=== PATIENT | male | born 1965 | race Caucasian/White ===

== ENCOUNTER 2016-02-29 08:22 | Day surgery (SDC) | payer BC ==
[~2016-02-29] VITALS: Ht 185.4 cm; Wt 79.4 kg
[~2016-02-29 08:22] MED LIST: OMEPRAZOLE20 M1 PO; PSEUDOEPHEDRINE30 MG PO
[2016-02-29 09:16] VITALS: BP 91/48; Ht 185.4 cm; Wt 79.4 kg
[2016-02-29 09:38] LABS: BASOPHILS 0.9 % (0.0-2.0); EOSINOPHILS 2.7 % (0-7); HEMATOCRIT 41.2 % (42.0-54.0); HEMOGLOBIN 13.5 g/dL (13.5-17.5); IMMATURE GRANULOCYTES 0.4 % (0-5); LYMPHOCYTES 36.9 % (15-50); MCH 30.5 pg (26.0-34.0); MCHC 32.8 g/dL (31.0-37.0); MCV 93.2 fL (80.0-100.0); MEAN PLATELET VOLUME 9.5 fL (7.4-10.4); MONOCYTES 13.3 % (2-11); NEUTROPHILS 45.8 % (40-80); PLATELET COUNT 345 10x3/uL (130-400); RBC 4.42 10x6/uL (4.20-6.10); RDW 13.4 % (11.5-14.5); WBC 5.6 10x3/uL (4.8-10.8)
[2016-02-29 09:47] LABS: CALC OSMOLALITY 272 mosm/kg (275-300); CALCIUM 9.1 mg/dL (8.5-10.1); CARBON DIOXIDE 26.2 mmol/L (21.0-32.0); CHLORIDE - SERUM 106 mmol/L (98-107); CREATININE - SERUM 0.9 mg/dL (0.6-1.3); GLUCOSE 96 mg/dL (74-106); SODIUM 137 mmol/L (136-145); UREA NITROGEN 9 mg/dL (7-18); eGFR NON AFRICAN AMERICAN > 90 mL/min (90-120)
[2016-02-29 09:49] LABS: POTASSIUM - SERUM 4.9 mmol/L (3.5-5.1)
[2016-02-29] MEDS ORDERED: PERCOCET 10/3251 TA1 PO (12:04)
--- NOTE | 2016-02-29 16:10 | NUR ---
VOIDED WITHOUT DIFFICULTY. IV REMOVED WITH TIP INTACT. DISCHARGE INSTRUCTIONS AND RX FOR PERCOCET GIVEN, VOICED UNDERSTANDING. DISCHARGED HOME VIA WC.
--- NOTE | 2016-03-05 10:09 | OP ---
PATIENT NAME: ADRIENNE HILARIO MEDICAL RECORD: [id number] :67 LOCATION:[facility] ADMISSION DATE: SURGEON: DYLON PEREZ MD DATE OF OPERATION: 02/29/2016 PREOPERATIVE DIAGNOSES: 1. Bilateral inguinal hernias. 2. Umbilical hernia. 3. Tobacco dependent syndrome. 4. Gastroesophageal reflux disease. POSTOPERATIVE DIAGNOSES: 1. Bilateral inguinal hernias. 2. Umbilical hernia. 3. Tobacco dependent syndrome. 4. Gastroesophageal reflux disease. PROCEDURES: 1. Bilateral inguinal hernia repairs with medium PHS mesh. 2. Umbilical hernia repair without mesh. SURGEON: Dylon Perez MD REPORT OF PROCEDURE: The patient's abdomen and groins were prepped and draped in sterile fashion. A semicircular incision was made on the inferior aspect of the umbilicus. Electrocautery was used to dissect through the subcutaneous tissues and we bluntly came around the umbilical stalk. The stalk was transected using electrocautery and the hernia sac was removed down to the fascial edges. The hernia defect was less than a centimeter in diameter. We cleared up the fascial edges and reapproximated the fascia transversely with interrupted 0 Prolenes times 3. We then irrigated out the wound. The umbilicus was tacked down to the fascia using interrupted 3-0 Vicryl and the subcutaneous tissues were reapproximated with interrupted 3-0 Vicryls. The skin was closed with running subcutaneous 5-0 Monocryl. We then addressed the patient's right inguinal hernia. An oblique incision was made above the inguinal ligament in the right groin. Electrocautery was used to dissect through the subcutaneous tissues to the external oblique fascia. This fascia was incised with a 15 blade and then opened up to the external ring using electrocautery. The ilioinguinal nerve was found and high ligated. The patient had a direct inguinal hernia. The spermatic cord was inspected and there was no sign of an indirect hernia defect. An opening was made in the floor of the inguinal canal and the preperitoneal space of Retzius was opened up. A medium PHS mesh was inserted and sutured down on all 4 sides with interrupted 0 Vicryls. The wound was then irrigated out with normal saline and care was taken to make sure there was no bleeding. The external oblique fascia was closed with running 2-0 Vicryl, Kari's was closed with interrupted 3-0 Vicryl and the skin was closed with running subcutaneous 5-0 Monocryl. We then approached the left side. An oblique incision was made above the inguinal ligament. Electrocautery was used to dissect through subcutaneous tissue to the external oblique fascia. This fascia was incised with a 15-blade and then opened up to the external ring using electrocautery. The ilioinguinal nerve was found and high ligated. A spermatic cord was elevated and we could see the patient had a direct hernia defect. Inspection of the cord showed no sign of an indirect hernia defect. We did have a small cord lipoma. This cord lipoma was dissected free and pushed back down into the peritoneal cavity. An opening was made in the inguinal floor and the OPERATIVE REPORT [id number] ADRIENNE HILARIO preperitoneal space of Retzius was opened up. A medium PHS mesh was inserted and sutured down on all 4 sides using interrupted 0 Vicryls. The wound was irrigated out with normal saline and care was taken to make sure there was no sign of any bleeding. The external oblique fascia was closed with running 2-0 Vicryl, Kari's was closed with interrupted 3-0 Vicryls and the skin was closed with running subcutaneous 5-0 Monocryl. A total of 25 mL of 0.25% Marcaine plain was infused into the surrounding tissues and the wounds were dressed appropriately. COMPLICATIONS: None. CONDITION: Stable. ANESTHESIA: General endotracheal and local. BLOOD LOSS: Minimal. TRANSINT:[id number] Voice Confirmation ID: [id number] DOCUMENT ID: [id number] DYLON PEREZ MD at 1009 CC: BILLY LOERA MD [id number] DICTATION DATE: 02/29/16 1213 DIRECTOR PEOPLESOFT: 02/29/16 1349 [facility] 02/29/16 [facility] [address] [id number]
== END 2016-02-29 16:10 | disposition home or self-care (01) ==
LOC: D.OPS 08:22 → D.PAN 10:45 → D.OPS 10:45
PROVIDERS: Surgery
DX: K40.20 Bilateral inguinal hernia, without obstruction or gangrene, not specified as recurrent (principal); K42.9 Umbilical hernia without obstruction or gangrene; K21.9 Gastro-esophageal reflux disease without esophagitis; T65.291A Toxic effect of other tobacco and nicotine, accidental (unintentional), initial encounter